=== PATIENT | male | born 1950 | race Caucasian/White ===

== ENCOUNTER 2023-02-02 06:33 | Day surgery (SDC) | payer MEDICARE, BC ==
[~2023-02-02] VITALS: Ht 180.3 cm; Wt 82.7 kg
[2023-02-02] MEDS ORDERED: albumin 25% 100mL bottle x 1 IV PRN (07:05)
[2023-02-02 07:15] VITALS: BP 140/61; PULSE 69; RESP 20; TEMP 97.8; O2SAT 98
[2023-02-02] MEDS ORDERED: RIVA2.5T PO (07:38)
[2023-02-02] MEDS ORDERED: GABA300C PO (07:38)
[2023-02-02] MEDS ORDERED: MECL-159 PO (07:38)
[2023-02-02] MEDS ORDERED: SIMV10TA98 PO (07:38)
[2023-02-02] MEDS ORDERED: HYDR-3972 PO (07:38)
[2023-02-02] MEDS ORDERED: AMLO5TAB PO (07:38)
[2023-02-02] MEDS ORDERED: LOP12.5T PO (07:38)
[2023-02-02] MEDS ORDERED: NYST15OI14 (07:38)
[2023-02-02] MEDS ORDERED: OMEP40CA21 PO (07:38)
[2023-02-02] MEDS ORDERED: TRAM50TA2 PO (07:38)
[2023-02-02 08:17] VITALS: BP 117/60; PULSE 75; RESP 16; O2SAT 98
[2023-02-02 08:31] VITALS: BP 108/63; PULSE 76; RESP 16; RESP 18; O2SAT 97
[2023-02-02 08:47] VITALS: BP 113/57; PULSE 70; RESP 16; O2SAT 100
[2023-02-02 09:01] VITALS: BP 113/52; PULSE 70; RESP 16; O2SAT 100
[2023-02-02 09:17] VITALS: BP 123/58; PULSE 73; RESP 16; O2SAT 99
== END 2023-02-02 09:30 | disposition home or self-care (01) ==
LOC: SSTAY O 06:33
PROVIDERS: ATTEND Radiology Vascular & Interventional Radiology
DX: C34.91 Malignant neoplasm of unspecified part of right bronchus or lung (principal); J91.0 Malignant pleural effusion; I10 Essential (primary) hypertension; E55.9 Vitamin D deficiency, unspecified; M54.16 Radiculopathy, lumbar region; G45.3 Amaurosis fugax; E78.5 Hyperlipidemia, unspecified; Z85.46 Personal history of malignant neoplasm of prostate; Z79.899 Other long term (current) drug therapy
CPT/HCPCS: 32555; C1729; J3490